=== PATIENT | female | born 2000 | race Caucasian/White ===

== ENCOUNTER 2025-03-07 13:47 | Emergency (ER) | payer OTHER ==
[~2025-03-07] VITALS: Ht 162.6 cm; Wt 72.7 kg
[2025-03-07 13:53] VITALS: BP 126/95; PULSE 79; RESP 16; TEMP 99.7; O2SAT 98
== END 2025-03-07 16:20 | disposition home or self-care (01) ==
LOC: EMS 13:47
DX: S60.212A Contusion of left wrist, initial encounter (principal); S60.812A Abrasion of left wrist, initial encounter; W22.8XXA Striking against or struck by other objects, initial encounter; Y93.89 Activity, other specified; Y92.89 Other specified places as the place of occurrence of the external cause; Y99.0 Civilian activity done for income or pay
CPT/HCPCS: 99283